=== PATIENT | male | born 1995 | race Two or more races ===

== ENCOUNTER 2018-04-30 03:47 | Emergency (ER) | payer OTHER ==
[~2018-04-30] VITALS: Ht 170.2 cm; Wt 95.3 kg
[2018-04-30] MEDS ORDERED: ZOFRAN ODT4 MG PO (06:44)
[2018-04-30] MEDS ORDERED: ZANTAC300 MG PO (06:44)
== END 2018-04-30 09:08 | disposition home or self-care (01) ==
LOC: ER 03:47
DX: R11.11 Vomiting without nausea (principal); F10.129 Alcohol abuse with intoxication, unspecified